=== PATIENT | male | born 1945 | race Hispanic/Latino ===

== ENCOUNTER 2019-09-15 22:18 | Inpatient (IN) | payer BC, MEDICARE ==
[~2019-09-15] VITALS: Ht 172.7 cm; Wt 59.5 kg
[~2019-09-15 22:18] MED LIST: GLUCOTROL XL5 MG PO; GLYBURIDE-METF1 EACH PO; LISINOPRIL10 MG PO; NORVASC5 MG PO
[2019-09-15] MEDS ORDERED: SODIUM CHLORIDE 0.9% 1000ML 1,000 ML IV STA ×2 (22:22)
[2019-09-15] MEDS: LORAZEPAM INJ 2 MG/ML VIAL IV ONE (22:30)
[2019-09-15] MEDS ORDERED: LORAZEPAM INJ 2 MG/ML VIAL ONE (22:32)
[2019-09-15 22:59] LABS: BASOPHILS % 0.1 % (0.0-1.0); HEMATOCRIT 29.4 % (38.2-49.6); HEMOGLOBIN 10.2 g/dL (14.0-18.0); LYMPHOCYTES # (AUTO) 0.6 (1.0-3.2); LYMPHOCYTES % 4.9 % (18.0-39.1); MEAN CORPUSCULAR HEMOGLOBIN 32.1 pg (28-32); MEAN CORPUSCULAR HGB CONC 34.7 g/dL (31-35); MEAN CORPUSCULAR VOLUME 92.5 fL (81-99); MONOCYTES # (AUTO) 0.4 (0.2-0.8); MONOCYTES % 3.1 % (4.4-11.3); NEUTROPHILS # (AUTO) 10.4 (2.1-6.9); NEUTROPHILS % 91.5 % (38.7-80.0); PLATELET COUNT 178 x10e3/uL (140-360); RED BLOOD COUNT 3.18 x10e6/uL (4.3-5.7); RED CELL DISTRIBUTION WIDTH 12.3 % (11.7-14.4)
[2019-09-15] MEDS ORDERED: POTASSIUM CHLORIDE 20MEQ/100ML 200 ML IV PRN (23:00)
[2019-09-15] MEDS: DEXTROSE 5%/0.45% SOD CHL 1,000 ML IV SCH (23:00)
[2019-09-15] MEDS ORDERED: MAGNESIUM SULF 1GRAM/DEXTROSE 100 ML IV PRN (23:00)
[2019-09-15] MEDS ORDERED: INSULIN REGULAR, HUMAN 3ML VL 100 UNIT in SODIUM CHLORIDE 0.9% 100 ML 99 ML IV SCH ×2 (23:00)
[2019-09-15] MEDS ORDERED: POTASSIUM CHLORIDE 20MEQ/100ML 100 ML IV PRN (23:00)
[2019-09-15 23:01] LABS: ABG HCO3 19 mmol/L (23-28); ABG PCO2 34 mmHg (41-51); ABG PH 7.36 (7.31-7.41); ABG PO2 107 mmHg (80-105)
[2019-09-15] MEDS ORDERED: SODIUM CHLORIDE 0.9% 100 ML ONE (23:11)
[2019-09-15] MEDS ORDERED: INSULIN REGULAR, HUMAN 100 UNIT/1 ML 3ML VIAL ONE (23:12)
[2019-09-15 23:20] LABS: ALANINE AMINOTRANSFERASE 12 IU/L (0-55); ALBUMIN 3.4 g/dL (3.5-5.0); ALBUMIN/GLOBULIN RATIO 1.1 (0.8-2.0); ALKALINE PHOSPHATASE 134 IU/L (40-150); BLOOD UREA NITROGEN 29 mg/dL (7-26); BUN/CREATININE RATIO 10 (6-25); CALCIUM 8.9 mg/dL (8.4-10.2); CARBON DIOXIDE 21 mmol/L (22-29); CHLORIDE 93 mmol/L (98-107); CREATINE KINASE 261 IU/L (30-200); CREATININE, SERUM 2.78 mg/dL (0.72-1.25); EST GLOMERULAR FILTRATION RATE 23 ML/MIN (60-); SODIUM 129 mmol/L (136-145)
--- NOTE | 2019-09-15 23:31 | Diagnostic Imaging Report ---
Exam: Head CT without contrast History: Trauma, fall Comparison studies: None Technique: Axial images were obtained from the skull base to the vertex. Coronal and sagittal images reconstructed from the axial data. Dose modulation, iterative reconstruction, and/or weight based adjustment of the mA/kV was utilized to reduce the radiation dose to as low as reasonably achievable. Radiation dose: Total DLP: 1112 mGy*cm. Estimated effective dose: DLP x 0.015 Intravenous contrast: None Findings: Scalp: Left frontal scalp swelling. Bones: No fractures, blastic or lytic lesions. Brain sulci: Mildly prominent. Ventricles: Mild compensatory dilatation. No hydrocephalus. Extra-axial spaces: No masses, no fluid collection. Parenchyma: No mass, acute hemorrhage or acute cortical vascular insults. Subtle hypodensities in the periventricular supratentorial white matter are nonspecific but most compatible with chronic small vessel ischemic changes. Sellar/suprasellar region: No abnormalities. Craniocervical junction: Patent foramen magnum. No Chiari one malformation. Incidental findings: Bilateral lens replacements related to previous cataract surgery. Atherosclerotic calcifications in the carotid siphons and intradural vertebral arteries. IMPRESSION: 1. Left frontal scalp swelling. No fracture. 2. No acute intracranial abnormalities. 3. Mild generalized parenchymal volume loss. 4. Mild chronic microvascular ischemic changes. Signed by: Dr. Maikel Mai M.D. on 09/15/2019 11:28 PM
[2019-09-15 23:34] LABS: GLUCOSE > 800 mg/dL (74-118)
--- NOTE | 2019-09-15 23:36 | Diagnostic Imaging Report ---
History: Trauma, fall Comparison studies: None Technique: Axial images were obtained through the cervical region.. Coronal and sagittal images reconstructed from the axial data.. Intravenous contrast: None Findings: Fractures: None. Soft tissue injuries: No gross acute abnormalities. Atlantoaxial articulation: Intact. Alignment: Normal cervical lordosis. No subluxations. Cervicomedullary junction: No abnormalities. The foramen magnum is patent. Vertebrae: No fractures, infection or neoplasm. Degenerative changes: Moderately degenerated C5-C6 disc and mildly degenerated C6-C7 disc with loss of disc height. No significant canal or foraminal stenosis. Multilevel facet arthrosis. Incidental findings: Dense calcified plaque in the carotid bulbs bilaterally. Additional calcified atherosclerosis in the intradural vertebral arteries and near the origin of the left vertebral artery. IMPRESSION: 1. No cervical spine fracture or subluxation. 2. Ligament, spinal cord and or vascular abnormalities cannot be excluded on the basis of this examination Signed by: Dr. Maikel Mai M.D. on 09/15/2019 11:33 PM
[2019-09-16] VITALS (23 sets, daily range): BP systolic 93–141; BP diastolic 53–78
--- OUTSIDE RECORDS SUMMARY | 2019-09-16 | XMS REPORT ---
Author Author [facility] Address Unknown Phone Unavailable Care Team Providers Care Gate Technician Name Role Phone YAN AGUILAR Unavailable Unavailable Problems This patient has no known problems. Allergies, Adverse Reactions, Alerts This patient has no known allergies or adverse reactions. Medications This patient has no known medications. Results Test Description Test Time Test Comments Text Results Atomic Results Result Comments CT CERVICAL SPINE WO 2019-09-15 23:28:00 [place] [address] Patient Name: CAPO ROCHA JR MR #: [id number] : 1945 Age/Sex: 73/M Req #: [id number] Adm Physician: Ordered by: YAN AGUILAR DO Report #: [id number] Location: ER Room/Bed: Procedure: [id number] CT/CT CERVICAL SPINE WO Exam Date: 09/15/19 Exam Time: 2245 REPORT STATUS: Signed History: Trauma, fall Comparison studies: None Technique: Axial images were obtained through the cervical region.. Coronal and sagittal images reconstructed from the axial data.. Intravenous contrast: None Findings: Fractures: None. Soft tissue injuries: No gross acute abnormalities. Atlantoaxial articulation: Intact. Alignment: Normal cervical lordosis. No subluxations. Cervicomedullary junction: No abnormalitie s. The foramen magnum is patent. Vertebrae: No fractures, infection or neoplasm. Degenerative changes: Moderately degenerated C5-C6 disc and mildly degenerated C6-C7 disc with loss of disc height. No significant canal or foraminal stenosis. Multilevel facet arthrosis. Incidental findings: Dense calcified plaque in the carotid bulbs bilaterally. Additional calcified atherosclerosis in the intradural vertebral arteries and near the origin of the left vertebral artery. IMPRESSION: 1. No cervical spine fracture or subluxation. 2. Ligament, spinal cord and or vascular abnormalities cannot be excluded on the basis of this examination Signed by: Dr. Tammie Mai M.D. on 09/15/2019 11:33 PM Dictated By: TAMMIE MAI MD 32 Transcribed By: CAT on 09/15/192332 COPY TO: YAN AGUILAR DO CT BRAIN WO 2019-09-15 23:23:00 [place] [address] Patient Name: CAPO ROCHA JR MR #: [id number] : 1945 Age/Sex: 73/M Req #: [id number] Adm Physician: Ordered by: YAN AGUILAR DO Report #: [id number] Location: ER Room/Bed: Procedure: [id number] CT/CT BRAIN WO Exam Date: 09/15/19 Exam Time: 2244 REPORT STATUS: Signed Exam: Head CT without contrast History: Trauma, fall Comparison studies: None Technique: Axial images were obtained from the skull base to the vertex. Coronal and sagittal images reconstructed from the axial data. Dose modulation, iterative reconstruction, and/or weight based adjustment of the mA/kV was utilized to reduce the radiation dose to as low as reasonably achievable. Radiation dose: Total DLP: 1112 mGy*cm. Estimated effective dose: DLP x 0.015 Intravenous contrast: None Findings: Scalp: Left frontal scalp swelling. Bones: No fractures, blastic or lytic lesions. Brain sulci: Mildly prominent. Ventricles: Mild compensatory dilatation. No hydrocephalus. Extra-axial spaces: No masses, no fluid collection. Parenchyma: No mass, acute hemorrhage or acute cortical vascular insults. Subtle hypodensities in the periventricular supratentorial white matter are nonspecific but most compatible with chronic small vessel ischemic changes. Sellar/suprasellar region: No abnormalitie s. Craniocervical junction: Patent foramen magnum. No Chiari one malformation. Incidental findings: Bilateral lens replacements related to previous cataract surgery. Atherosclerotic calcifications in the carotid siphons and intradural vertebral arteries. IMPRESSION: 1. Left frontal scalp swelling. No fracture. 2. No acute intracranial abnormalities. 3. Mild generalized parenchymal volume loss. 4. Mild chronic microvascular ischemic changes. Signed by: Dr. Tammie Mai M.D. on 09/15/2019 11:28 PM Dictated By: TAMMIE MAI MD [id number] Transcribed By: CAT on 09/15/196 COPY TO: YAN AGUILAR DO
[2019-09-16] MEDS: SODIUM CHLORIDE 0.9% 1000ML 1,000 ML IV SCH ×2 (01:00→06:40)
[2019-09-16 01:22] LABS: CREATINE KINASE MB 8.1 ng/mL (0-5.0)
[2019-09-16 02:13] LABS: ANION GAP 15.4 mmol/L (8-16); CALCIUM 8.1 mg/dL (8.4-10.2); CREATININE, SERUM 2.41 mg/dL (0.72-1.25); POTASSIUM 4.4 mmol/L (3.5-5.1)
--- NOTE | 2019-09-16 03:00 | NUR ---
Received to 191 from ER. Placed on EKG, pulse ox & NBP for monitoring. Admission history, vaccine screening & Initial admission assessment completed. See interventions. Insulin drip infusing @ 6 units/hr & NS @ 150ml/hr.
--- NOTE | 2019-09-16 03:45 | NUR ---
Family at bedside. Questions answered. Blood drawn for BMP and taken to lab.
[2019-09-16 04:37] LABS: ANION GAP 15.6 mmol/L (8-16); CALCIUM 8.3 mg/dL (8.4-10.2); CREATININE, SERUM 1.98 mg/dL (0.72-1.25); POTASSIUM 3.6 mmol/L (3.5-5.1)
[2019-09-16] MEDS: DEXTROSE 5%/0.45% SOD CHL 1,000 ML IV SCH ×2 (05:00→16:54)
--- NOTE | 2019-09-16 05:58 | NUR ---
Diaper changed and brenda care done.
[2019-09-16] MEDS: LORAZEPAM INJ 2 MG/ML VIAL IV ONE (06:14)
--- NOTE | 2019-09-16 06:23 | NUR ---
Increased D5 1/2NS to 200ml/hr and restarted Insulin @ 5 units/hr.
[2019-09-16 06:52] LABS: ANION GAP 14.4 mmol/L (8-16); CALCIUM 8.7 mg/dL (8.4-10.2); CREATININE, SERUM 2.04 mg/dL (0.72-1.25); POTASSIUM 3.4 mmol/L (3.5-5.1)
[2019-09-16 08:18] LABS: ANION GAP 14.8 mmol/L (8-16); CALCIUM 8.6 mg/dL (8.4-10.2); CREATININE, SERUM 2.07 mg/dL (0.72-1.25); POTASSIUM 3.8 mmol/L (3.5-5.1)
--- NOTE | 2019-09-16 09:14 | NUR ---
H&P cc: fall and passing out HPI: 73yoM, PCP [facility], fell and passed out on 2 occasions at home. THere was some head trauma to left frontal scalp. Pt found by down; He was confused from time to time, and had markedly elevated blood glucose. PMH: DM2, HTN, Presyncope PSHx: cataract Allergies; see emr FH/SH; ; no illicits Meds; see MAR ROS: unobtainable v/s revd PE tired appearing; bitemporal wasting left periorbital erythema ns1s2 mod bs soft nt nd no e/t skin dry flat affect confused [place] labs/meds revd A/P: 73yoM NSTEMI Uncontrolled DM/Hyperglycemia Syncope Acute Metabolic encephalopathy Elderly fall CKD3 due to DM2 Underweight Low BMI BMI 18.4 Normocytic anemia PLAN Start heparin gtt; check echo; cardio eval CHeck Osmoles; Did no have DKA, likely HHS; endocrinology eval cct>35mins
[2019-09-16] MEDS: HEPARIN 25,000 UNIT/D5W 250ML 250 ML IV SCH (09:42)
[2019-09-16 09:53] LABS: HEMATOCRIT 25.3 % (38.2-49.6); HEMOGLOBIN 8.8 g/dL (14.0-18.0); MEAN CORPUSCULAR HEMOGLOBIN 32.1 pg (28-32); MEAN CORPUSCULAR HGB CONC 34.8 g/dL (31-35); MEAN CORPUSCULAR VOLUME 92.3 fL (81-99); PLATELET COUNT 132 x10e3/uL (140-360); RED BLOOD COUNT 2.74 x10e6/uL (4.3-5.7); RED CELL DISTRIBUTION WIDTH 12.5 % (11.7-14.4)
[2019-09-16] MEDS ORDERED: HEPARIN SOD (PORCINE) 5,000 UNIT/ML VIAL IV ONE (10:00)
[2019-09-16 10:05] LABS: CHOL/HDL RATIO 2.4 (3.9-4.7)
--- NOTE | 2019-09-16 10:30 | NUR ---
ALL PHYSICIAN CONSULTS CALLED AT THIS TIME
[2019-09-16] MEDS ORDERED: INSULIN REGULAR, HUMAN 3ML VL 300 UNIT in SODIUM CHLORIDE 0.45% 100 ML 300 ML IV SCH ×2 (10:34)
[2019-09-16 10:38] LABS: INR 1.27; PROTHROMBIN TIME 16.5 seconds (11.9-14.5)
[2019-09-16] MEDS ORDERED: DEXTROSE 50% SYRINGE 50 ML IV PRN ×2 (10:45→14:45)
--- NOTE | 2019-09-16 10:45 | NUR ---
SPOKE TO INSTRUCTED TO START ON HIS INSULIN PROTOCOL AND DECREASE FLUIDS TO 150 CC/HR.
[2019-09-16] MEDS ORDERED: THIAMINE HCL INJ 100 MG/ML 2ML VIAL IV ONE (11:30)
[2019-09-16 12:04] LABS: CLARITY,URINE CLEAR (CLEAR); COLOR,URINE YELLOW (YELLOW)
[2019-09-16 12:05] LABS: AMPHETAMINES SCREEN,URINE NEGATIVE (NEGATIVE); KETONES,URINE TRACE (NEGATIVE); LEUKOCYTE ESTERASE ,URINE NEGATIVE (NEGATIVE); NITRITE,URINE NEGATIVE (NEGATIVE); PHENCYCLIDINE SCREEN,URINE NEGATIVE (NEGATIVE); PROTEIN,URINE DIPSTICK 1+ (NEGATIVE)
[2019-09-16 12:06] LABS: BENZODIAZEPINES SCREEN,URINE POSITIVE (NEGATIVE); BILIRUBIN,URINE NEGATIVE (NEGATIVE); URINE UROBILINOGEN 0.2 mg/dL (0.2 - 1)
[2019-09-16 12:10] LABS: RBC,URINE 0-5 /HPF (0-5); WBC,URINE (MAN) 0-5 /HPF (0-5)
[2019-09-16 12:11] LABS: AMORPHOUS SEDIMENT,URINE FEW (FEW); BACTERIA,URINE FEW /HPF; EPITHELIAL CELLS,URINE RARE /LPF
--- NOTE | 2019-09-16 12:12 | Diagnostic Imaging Report ---
EXAMINATION: CHEST SINGLE (PORTABLE) COMPARISON: None INDICATION: ^screening, sepsis ^[id number] ^[id number] DISCUSSION: Frontal view of the chest obtained at 1140 hours. HEART AND MEDIASTINUM: The cardiomediastinal silhouette is unremarkable. LINES: None. LUNGS: The lungs are diffusely hyperinflated suggestive of small airways disease. Pulmonary veins are mildly prominent. Right infrahilar airspace opacity may represent atelectasis or infiltrate. PLEURA: No pleural effusion or pneumothorax. BONES AND SOFT TISSUES: No focal osseous lesion. The soft tissues are normal. IMPRESSION: Mild prostate pulmonary veins. Pulmonary hyperinflation suggestive of small airways disease. Right infrahilar airspace opacity, either atelectasis or infiltrate. Signed by: Dr. Ragini Russell MD on 09/16/2019 12:09 PM
[2019-09-16] MEDS ORDERED: INSULIN REGULAR, HUMAN 3ML VL 100 UNIT in SODIUM CHLORIDE 0.9% 99 ML IV SCH ×4 (15:00→15:15)
[2019-09-16] MEDS: FAMOTIDINE 20 MG/2 ML VIAL IV SCH (16:08)
--- NOTE | 2019-09-16 17:19 | Consultation ---
DATE OF CONSULTATION: 09/16/2019 Pulmonary Critical Care Consult REASON FOR REFERRAL: Critical hyperglycemia. HISTORY OF PRESENT ILLNESS: Mr. Osei is a pleasant 73-year-old gentleman with critical sequela of hyperglycemia. The patient presents to emergency room on September 26, 2019. The patient had decreased mental status and known noncompliance with diabetes medications. He was disoriented recently and decreased responsiveness and the patient was last noted two days ago to be at his normal level. The glucose meter reading was high as per family, therefore he was brought to the emergency room. When he comes to the emergency room, it was noted he has left frontal scalp swelling, but no jeannie fracture on another brain CT nor cervical spine CT. When blood work came back, it was noted that his glucose was greater than 800 in our system as well. Initial sodium was 129 with 21 bicarbonate, 29 BUN, creatinine 2.8. The patient had troponin to 1.99 as well. At this point, he was placed on insulin drip as noted admitted for aggressive treatment of predominant hyperosmolar hyperglycemic state. PAST MEDICAL HISTORY: Diabetes, hypertension, CKD. MEDICATIONS: Medication list reviewed per the chart record. ALLERGIES: REVIEWED PER THE CHART RECORD, NO KNOWN DRUG ALLERGIES. SOCIAL HISTORY: Unclear from the patient, but notes suggest no smoking, no alcohol, no drug use. FAMILY HISTORY: Noncontributory. REVIEW OF SYSTEMS: Cannot get reliably, as he is slightly altered. OBJECTIVE: VITAL SIGNS: Currently afebrile, vital signs noted, reviewed per the chart record. GENERAL: In no acute distress, alert and calm, but he has hard time to collect his thoughts. HEENT: Normocephalic, atraumatic. NECK: Supple. Throat midline. LUNGS: Bilateral air entry, mostly clear. CARDIOVASCULAR: S1, S2. No murmurs, rubs, or gallops. ABDOMEN: Soft and nontender. EXTREMITIES: No clubbing no cyanosis. There is no edema. INTEGUMENT: No rash or purpura. LABORATORY DATA: Other labs reviewed per the chart record. A 7.3//19. IMPRESSION AND PLAN: 1. Suggested nonketotic hyperosmolar hyperglycemic state, uncontrolled diabetes. 2. History of treatment of nonadherence. 3. Chronic kidney disease. 4. History of hypertension. 5. Encephalopathy, not otherwise specified. 6. Left periorbital contusion without fracture. 7. Anemia, moderate. 8. Thrombocytopenia, mild. 9. Lactic acidosis, not otherwise specified. 10. Acute myocardial infarction with troponins of 5.7. Continue insulin drip. Continue some additional IV fluids. Cardiology has been consulted and the patient is on heparin drip. We will give vitamins initially until we know the ideology of the patient's altered mentation. Urinary drug screen and UA will be sent off. Thank you very much, Dr. Carpenter for allowing me a chance to participate in the care of Mr. Osei. Please call for questions. MD MARSHALL Pink/MUMTAZ /[id number]
[2019-09-16 17:53] LABS: ANION GAP 13.1 mmol/L (8-16); CALCIUM 8.1 mg/dL (8.4-10.2); CREATININE, SERUM 1.95 mg/dL (0.72-1.25); POTASSIUM 4.1 mmol/L (3.5-5.1)
[2019-09-16 18:34] LABS: FREE T4 (FREE THYROXINE) 0.94 ng/dL (0.8-1.8); THYROID STIMULATING HORMONE 0.505 uIU/mL (0.350-4.940)
--- NOTE | 2019-09-16 19:00 | NUR ---
Report received. Assumed care. Assessment done. See interventions. IV NS @ 125ml/hr. On room air with sats 94-97% Addendum: 09/16/19 at 2010 by Trish Allen RN NS @ 120ml/hr, Insulin drip @ 1 unit/hr, & Heparin @ 6 units/hr.
--- NOTE | 2019-09-16 19:25 | Consultation ---
DATE OF CONSULTATION: 09/16/2019 Cardiology consultation. REASON FOR CONSULTATION: Syncope, elevated troponin. HISTORY OF PRESENT ILLNESS: This is a 73-year-old man with a history of possible diabetes, who presented to the emergency department with altered mental status. The patient has mild confusion. He cannot provide me the exact details of his presenting symptoms or his past medical history. Most of the history is taken from family at bedside and the medical record. Evidently, the patient has had two syncopal events over the last few days. One with trauma to his left eye. The patient states that he develops severe shortness of breath with left hand cramping sensation and then loses consciousness. He denies any chest pain or pressure. The patient denies any prior cardiac workup or history of myocardial infarction, congestive heart failure, valvular abnormalities. The patient denies any palpitations with these episodes. Evidently, he was found to have severely-elevated blood glucose of greater than 800 when he arrived to the hospital. Troponin's were noted to be elevated at 1.9 initially and it is currently 5.7. REVIEW OF SYSTEMS: Unable to be obtained due to confusion. PAST MEDICAL HISTORY: Diabetes. PAST FAMILY HISTORY: Noncontributory. SOCIAL HISTORY: No illicit drug, alcohol, or tobacco use. ALLERGIES: NO KNOWN DRUG ALLERGIES. MEDICATIONS: See medications reconciliation form. PHYSICAL EXAMINATION: VITAL SIGNS: Temperature is 98.6, heart rate 65, respirations are 14, blood pressure is 126/74, oxygen saturation 100% on room air. GENERAL: He is an elderly man, lying comfortably in bed, no apparent distress, and alert. HEAD: Normocephalic. There is trauma to the left periorbital region. NECK: No JVD. No bruits. CARDIOVASCULAR: Regular rate and rhythm. LUNGS: Clear to auscultation. ABDOMEN: Soft, nontender, nondistended. EXTREMITIES: No clubbing, cyanosis, or edema. VASCULAR: 2+ pulses. SKIN: Warm, dry, intact. NEUROLOGIC: No focal deficits noted on gross examination. LABORATORY DATA: Reveal a creatinine of 2.7. Lactic acid 2.4. Troponin is 5.7. IMAGING: A 12-lead electrocardiogram showed normal sinus rhythm with nonspecific ST-T wave abnormalities. TELEMETRY: Monitoring revealed normal sinus rhythm with premature ventricular complexes. IMPRESSION: 1. Hyperglycemia. 2. Diabetes mellitus. 3. Tpl-PP-iocnqjblx myocardial infarction. 4. Acute kidney injury. 5. Syncope. 6. Altered mental status. RECOMMENDATIONS: Continue intravenous heparin and aspirin. Continue diabetes treatment per primary team. We will check a 2D echocardiogram. Maintain telemetry monitoring. The patient will need cardiac catheterization once he is more stable. Brock Barcenas DO BM/MODL /[id number]
--- NOTE | 2019-09-16 22:20 | Consultation ---
DATE OF CONSULTATION: 09/15/2019 Endocrine Consultation This is a patient of Dr. Jayden Naranjo. Thank you very much for referring this patient. HISTORY OF PRESENT ILLNESS: This is a 73-year-old gentleman who was referred to me for evaluation of uncontrolled diabetes mellitus and diabetic ketoacidosis. The patient reportedly is a known diabetic for last several years. He does not take any routine medications for it and is trying some homeopathic medicines on the line. At this time, he came to the hospital with history of dehydration, nausea, vomiting, and some chest discomfort. On further evaluation, his blood sugar was found to be more than 800. His anion gap was 20. His sodium was 129 and potassium was 5.0. His troponin levels are also elevated at 1.9. The patient was started on IV fluids and insulin drip. Symptomatically, he is doing better now. No history of coronary artery disease in the past. He has history of hypertension. PHYSICAL EXAMINATION: GENERAL: Today, the patient is alert, awake, little bit apprehensive. He is thin built. He has decreased muscle mass. VITAL SIGNS: His heart rate is around 67, blood pressure is 110/70 mmHg. HEENT: Essentially unremarkable. Thyroid is palpable. Clinically, he is near euthyroid. CHEST: Bilateral vesicular breathing. No rales. CARDIOVASCULAR: First and second heart sounds. There are no third or fourth heart sounds. There is ejection systolic murmur grade 2/6. NEUROLOGIC: The patient has evidence of diabetic sensory neuropathy in both lower extremities. CLINICAL IMPRESSION: Diabetes mellitus type 2, uncontrolled with complications; noncompliance of medications, diabetic ketoacidosis, chest pain, rule out myocardial infarction; increased troponin levels, and acute on chronic renal failure. PLAN: At this time, continue IV fluids and insulin drip. Monitor his blood sugars closely. We will do hemoglobin A1c and thyroid function tests. Thanks for referring this patient. I will be following this patient with you. MD VÍCTOR Ordaz/JOHANL /[id number]
--- NOTE | 2019-09-16 22:59 | NUR ---
O2 sat 89%. Placed on 2L NC. O2 sat then went up to 93%. Addendum: 09/17/19 at 0040 by Trish Allen RN Error wrong chart.
--- NOTE | 2019-09-16 23:30 | NUR ---
PTT 50.6. No change in Heparin drip.
[2019-09-17] VITALS (27 sets, daily range): BP systolic 100–149; BP diastolic 53–79
[2019-09-17 00:05] LABS: ANION GAP 12.1 mmol/L (8-16); CALCIUM 8.2 mg/dL (8.4-10.2); CREATININE, SERUM 1.97 mg/dL (0.72-1.25); POTASSIUM 4.1 mmol/L (3.5-5.1)
--- NOTE | 2019-09-17 00:41 | Consultation ---
DATE OF CONSULTATION: 09/16/2019 Nephrology Consultation REASON FOR CONSULTATION: Renal insufficiency. HISTORY OF PRESENT ILLNESS: The patient is a 73-year-old white male with long-standing history of diabetes mellitus, who was apparently found unconscious at home by and brought to medical attention. His blood sugar was found to be in the 800 range. He was given treatment for hyperosmolar coma, which included aggressive IV hydration and later IV insulin drip. He is currently admitted to the ICU and is alert and appears oriented. Apparently, he was also seen by sheet metal mechanic for elevated troponin and he is on an IV heparin drip. His labs showed a creatinine of 2.07, BUN 27, bicarb of 11, potassium initially of 3.4 and then up to 3.8 with replacement, sodium of 140, and glucose currently is 80. The patient is not aware of any chronic kidney disease. In fact, has not seen a physician recently. Denies history of kidney stones or intake of NSAID. Denies any nausea, vomiting, diarrhea, abdominal or flank pain, dysuria, or gross hematuria. No shortness of breath. PAST MEDICAL HISTORY: As above. Not known if he is hypertensive. CURRENT MEDICATIONS: Reviewed from DEC. ALLERGIES: NONE KNOWN. SOCIAL HISTORY: Lives with his . No alcohol or tobacco use. REVIEW OF SYSTEMS: Negative except as noted in HPI above. PHYSICAL EXAMINATION: GENERAL: The patient appears comfortable, lying supine in bed. VITAL SIGNS: Blood pressure 126/67, respiratory rate 13 per minute, he is afebrile, pulse 78 per minute and regular, and oxygen saturation is 100% on room air. SKIN: Somewhat decrease in turgor. No rash or other lesions. HEENT: Normocephalic and atraumatic head. No icterus. Oral mucosa unremarkable. NECK: Supple without jugular venous distention. CHEST: Clear to auscultation bilaterally. CARDIOVASCULAR: Normal S1, S2 without murmur, rub, or gallop. ABDOMEN: Soft, depressible, nontender, and nondistended. EXTREMITIES: Without pitting edema or cyanosis. NEUROLOGIC: The patient is alert and appears oriented. No obvious focal deficit. IMAGING: Chest x-ray, report shows no pleural effusion with a right infrahilar airspace opacity, either atelectasis or infiltrate. LABORATORY DATA: Serum chemistries as noted above in HPI. CBC shows hemoglobin of 8.8, normal white count, and platelets 132,000. Urinalysis shows specific gravity 1.020, 1+ protein, negative microscopy. IMPRESSION: Renal insufficiency, duration or etiology not known at this time. He does have a long history of diabetes mellitus, but has only 1+ protein on urinalysis. This is in the setting of dehydration from the hyperglycemia that he presented with. No known history of hypertension as reported by the patient. No NSAID intake or recent IV iodinated dye exposure. No apparent recent hypotension. RECOMMENDATIONS: Continue treatment of the hyperosmolar condition with IV hydration. He is already taking orally. Avoid all known nephrotoxins such as NSAIDs, aminoglycoside antibiotics, and iodinated contrast as possible. His potassium has already been replaced into a normal level. At present, he only appears to have mild metabolic acidosis. Repeat BMP tomorrow morning. If BUN, creatinine are still elevated, we will obtain a renal ultrasound to rule out obstruction. We will follow the patient and suggest as indicated. Thank you for the opportunity to participate in his care. MD VIGNESH Martinez/MUMTAZ /[id number]
[2019-09-17] MEDS: DEXTROSE 5%/0.45% SOD CHL 1,000 ML IV SCH ×3 (02:18→19:49)
[2019-09-17 05:15] LABS: BASOPHILS % 0.4 % (0.0-1.0); EOSINOPHILS # (AUTO) 0.2 (0.0-0.4); EOSINOPHILS % 2.3 % (0.0-6.0); HEMATOCRIT 22.9 % (38.2-49.6); HEMOGLOBIN 7.8 g/dL (14.0-18.0); LYMPHOCYTES # (AUTO) 2.2 (1.0-3.2); LYMPHOCYTES % 29.8 % (18.0-39.1); MEAN CORPUSCULAR HEMOGLOBIN 31.7 pg (28-32); MEAN CORPUSCULAR HGB CONC 34.1 g/dL (31-35); MEAN CORPUSCULAR VOLUME 93.1 fL (81-99); MONOCYTES # (AUTO) 0.5 (0.2-0.8); MONOCYTES % 6.4 % (4.4-11.3); NEUTROPHILS # (AUTO) 4.6 (2.1-6.9); NEUTROPHILS % 60.8 % (38.7-80.0); PLATELET COUNT 123 x10e3/uL (140-360); RED BLOOD COUNT 2.46 x10e6/uL (4.3-5.7); RED CELL DISTRIBUTION WIDTH 12.8 % (11.7-14.4)
--- NOTE | 2019-09-17 07:31 | NUR ---
IM- progress note O/N no events ROS: unobtainable v/s revd PE tired appearing; bitemporal wasting left periorbital erythema ns1s2 mod bs soft nt nd no e/t skin dry flat affect confused [place] labs/meds revd A/P: 73yoM NSTEMI Uncontrolled DM/Hyperglycemia Syncope Acute Metabolic encephalopathy Elderly fall CKD3 due to DM2 Underweight Low BMI BMI 18.4 Normocytic anemia PLAN Start heparin gtt; check echo; cardio eval CHeck Osmoles; Did no have DKA, likely HHS; endocrinology eval cct>35mins 09/17 Hba1c/LDL 14.7/73 09/18 Rolf Carpenter MD, PhD.
[2019-09-17] MEDS: MULTIVITAMINS/MINERALS TAB PO SCH (08:24)
[2019-09-17] MEDS: FAMOTIDINE 20 MG/2 ML VIAL IV SCH ×2 (08:24→16:49)
[2019-09-17] MEDS: HEPARIN 25,000 UNIT/D5W 250ML 250 ML IV SCH (10:00)
--- NOTE | 2019-09-17 11:14 | Progress Note ---
DATE: 09/17/2019 Cardiology Progress Note SUBJECTIVE: The patient denies chest pain or shortness of breath. He remains on insulin drip. OBJECTIVE: VITAL SIGNS: Temperature 97.9 degrees, pulse 77, respiratory rate 20, blood pressure 130/65, oxygen saturation 100% on room air. GENERAL: Awake, alert, in no acute distress. LUNGS: Clear to auscultation bilaterally. No wheezes or crackles. CARDIOVASCULAR: Normal rate, regular rhythm. No murmur. Normal S1, S2. ABDOMEN: Soft, nontender. EXTREMITIES: No edema. CARDIAC MEDICATIONS: Heparin drip. Insulin drip. LABORATORY DATA: WBC 7.52, hemoglobin 7.8, hematocrit 22.9, platelets 123. Sodium 137, potassium 4.1, chloride 110, CO2 of 19, BUN 24, creatinine 1.97. TELEMETRY: Normal sinus rhythm. IMPRESSION: 1. Nen-HY-lbyyjadnx myocardial infarction. 2. Hyperglycemia. 3. Diabetes mellitus. 4. Acute kidney injury. 5. Syncope. 6. Altered mental status. RECOMMENDATIONS: Continue heparin drip. The patient will need cardiac catheterization once off insulin drip and renal function has stabilized. In the meantime, monitor patient on telemetry. Add aspirin and statin. Echocardiogram has been ordered. We will review images once available. Thank you for this consult. We will continue to follow. Ericka Zaldivar MD ABS/MODL /[id number]
--- NOTE | 2019-09-17 19:37 | NUR ---
Nutrition Intervention Note RD Recommendation(s) for Physician: -Glucerna BID for added nutrition -Recommend diabetic diet Plan of Care: RD following, monitoring for tolerance and adequacy Nutrition reason for involvement: MST RD Assessment (09/17/19) Pt is a 73 year old male admitted with hyperosmolar hyperglycemic coma due to diabetes without ketoacidosis. Pt stated he has a good appetite and has been eating most of his meals. Consumption of 50-100% of meals documented in chart. Pt reported he used to weigh 150-160 lbs but was unsure of when he last weighed this amount. Pt has weights ranging from 121-127 lbs during this admission. No N/V/D/C reported and no chewing/swallowing issues. Pt was interested in nutrition supplement. Principal Problems/Diagnoses: hyperosmolar hyperglycemic coma due to diabetes without ketoacidosis. PMH: diabetes, HTN, presyncope I/O: 610/1150 GI: flat, soft, nontender abdomen Skin: no pressure ulcers Labs: HgbA1c 14, Creat 1.97, Ca 8.2 Meds: multivitamin with minerals, pepcid, heparin, KCl, insulin glargine, atorvastatin, insulin regular, magnesium sulfate, potassium chloride Ht: 68 inches Wt: 127 lbs BMI: 19.3 kg/m2 IBW: 154 lbs Malnutrition Evaluation (09/17/19) The patient does not meet criteria for a specified degree of malnutrition at this time. Will re-evaluate at follow-up as appropriate. Energy intake: Adequate PO intake reported Weight loss: Unable to assess Fat loss: no loss identified Muscle loss: Moderate lower extremities, mild temporal muscle depletion Supporting Evidence: Fluid accumulation: no accumulation identified per MD note Functional Status: unable to evaluate Nutrition Prescription (Diet Order): Cardiac Diet Estimated Nutritional Needs: 6050-1808 calories/day (25-35 kcal/kg CBW) 58-87 g protein/day (1.0-1.5 g pro/kg CBW) Diet Adequacy: Meeting calorie needs, Meeting protein needs Tolerance: Tolerating PO Diet Education Needs Assessment: Pt was interested in diet education Learner(s): pt Time spent: 5-10 minutes Barriers: No barriers identified. Cultural/Language Modifications: No cultural/language modifications noted. Pt and speak [place]. Readiness: Pt eager to learn. Method: explanation/discussion, handout Topic: Diabetic diet Understanding/Compliance: Pt verbalized understanding Nutrition Care Level: low PES: Altered nutrition related lab values related to endocrine dysfunction as evidenced by Hgb A1c 14%. Goal: Patient will meet 75-100% of estimated needs by follow up Progress: N/A Interventions: carbohydrate-modified diet, Commercial beverage, Recommended Modifications Monitoring/Evaluation: -Total energy intake, Total protein intake, Modified diet, Liquid supplement, Weight change Signed: Miriam De Lso Santos RD, LD
[2019-09-17] MEDS: ATORVASTATIN 10 MG TAB PO SCH (20:33)
[2019-09-17] MEDS ORDERED: INSULIN GLARGINE 100 UNITS/ML VIAL SQ SCH (21:00)
[2019-09-17 21:05] LABS: ALBUMIN 2.7 g/dL (3.5-5.0); ALBUMIN/GLOBULIN RATIO 1.2 (0.8-2.0); ANION GAP 11.5 mmol/L (8-16); CALCIUM 7.9 mg/dL (8.4-10.2); CREATININE, SERUM 2.14 mg/dL (0.72-1.25); MAGNESIUM 1.9 MG/DL (1.3-2.1); POTASSIUM 4.5 mmol/L (3.5-5.1)
[2019-09-18] VITALS (23 sets, daily range): BP systolic 95–168; BP diastolic 47–107
--- NOTE | 2019-09-18 00:26 | NUR ---
Pulmonary Critical Care DATE 09/17/2019 SUBJECTIVE: EATING well d5 1/2 NS ivf insulin drip 3/ heparin iv REVIEW OF SYSTEMS: no emesis, no rash OBJECTIVE: VITAL SIGNS: vital signs noted, reviewed per the chart record. GENERAL: NAD, alert / calm HEENT: Normocephalic, atraumatic. NECK: Supple. Throat midline. LUNGS: Bilateral air entry, mostly clear. CARDIOVASCULAR: S1, S2. No murmurs, rubs, or gallops. ABDOMEN: Soft, nontender. EXTREMITIES: No clubbing, no cyanosis. no edema. INTEGUMENT: No rash or purpura. LABORATORY DATA: k 4.1, hco3 19, cr 1.97. 7.5 wbc, hct 23, plt 123 IMPRESSION AND PLAN: 1. nonketotic hyperosmolar hyperglycemic state, uncontrolled diabetes. 2. History of treatment of nonadherence. 3. Chronic kidney disease. 4. History of hypertension. 5. Encephalopathy, toxic/metabolic. Improved. 6. Left periorbital contusion without fracture. 7. Anemia, moderate. 8. Thrombocytopenia, mild. 9. Lactic acidosis, not otherwise specified. 10. Acute myocardial infarction Insulin drip per endocrinology Continue some additional IV fluids Cardiology to consider heart catheterization once stabilized further Give vitamins AM BMP Thank you very much, Dr. Carpenter for allowing me a chance to participate in the care of Mr. Osei. Please call for questions.
[2019-09-18] MEDS ORDERED: NITROGLYCERIN/D5W 200 MCG/ML 250 ML ONE (01:19)
[2019-09-18] MEDS: DEXTROSE 5%/0.45% SOD CHL 1,000 ML IV SCH ×2 (04:06→15:09)
[2019-09-18 05:33] LABS: ALBUMIN 2.4 g/dL (3.5-5.0); ALBUMIN/GLOBULIN RATIO 1.1 (0.8-2.0); ANION GAP 10.2 mmol/L (8-16); CALCIUM 7.8 mg/dL (8.4-10.2); POTASSIUM 4.2 mmol/L (3.5-5.1)
--- NOTE | 2019-09-18 06:47 | NUR ---
IM- progress note O/N no events ROS: unobtainable v/s revd PE tired appearing; bitemporal wasting left periorbital erythema ns1s2 mod bs soft nt nd no e/t skin dry flat affect confused [place] labs/meds revd A/P: 73yoM NSTEMI Uncontrolled DM/Hyperglycemia Syncope Acute Metabolic encephalopathy Elderly fall CKD3 due to DM2 Underweight Low BMI BMI 18.4 Normocytic anemia PLAN Start heparin gtt; check echo; cardio eval CHeck Osmoles; Did no have DKA, likely HHS; endocrinology eval cct>35mins 09/17 Hba1c/LDL 14.7/73 09/18 check H/H, Hb trending down; f/u cardio; Rolf Carpenter MD, PhD.
[2019-09-18 06:59] LABS: HEMATOCRIT 24.3 % (38.2-49.6); HEMOGLOBIN 8.4 g/dL (14.0-18.0)
[2019-09-18 08:19] LABS: CREATINE KINASE MB 3.2 ng/mL (0-5.0)
[2019-09-18] MEDS: ASPIRIN 81 MG ENTERIC COATED PO SCH (08:26)
[2019-09-18] MEDS: FAMOTIDINE 20 MG/2 ML VIAL IV SCH ×2 (08:26→16:08)
[2019-09-18] MEDS: MULTIVITAMINS/MINERALS TAB PO SCH (08:27)
--- NOTE | 2019-09-18 14:09 | Diagnostic Imaging Report ---
EXAM: US RENAL RETROPERITONEAL COMP DATE: 09/18/2019 12:00 AM INDICATION: Chronic kidney disease, rule out obstruction COMPARISON: Renal ultrasound from 07/05/2013 FINDINGS: The right kidney is partially obscured by adjacent bowel gas accurate measurements difficult. The right kidney appears grossly normal in size with cortical thickness of 1.5 cm. Cortical echogenicity is within normal limits. There is no evidence for solid renal mass, hydronephrosis, or shadowing calculi. The left kidney is normal in size measuring 9.6 x 4.4 x 3.8 centers with cortical thickness of 1.4 cm. Cortical echogenicity is within normal limits. There is no evidence of solid renal mass, hydronephrosis, or shadowing calculi. The urinary bladder is collapsed around Germain catheter. Incidentally noted is a small right pleural effusion. IMPRESSION: Unremarkable sonographic appearance of the kidneys, noting that a portion of the right kidney is partially secured by adjacent bowel gas. Incidentally noted small right pleural effusion. Signed by: Dr. Gabriel Carolina MD on 09/18/2019 2:06 PM
[2019-09-18] MEDS ORDERED: DEXTROSE 50% SYRINGE 50 ML IV PRN (15:15)
[2019-09-18] MEDS: METOPROLOL TARTRATE 25 MG TAB PO SCH (16:08)
[2019-09-18] MEDS: INSULIN REGULAR, HUMAN 100 UNIT/1 ML 3ML VIAL SQ SCH ×2 (16:25→20:40)
--- NOTE | 2019-09-18 18:44 | Progress Note ---
DATE: 09/18/2019 Cardiology Progress Note SUBJECTIVE: The patient denies chest pain or shortness of breath. OBJECTIVE: VITAL SIGNS: Temperature 97.3 degrees, pulse 80, respiratory rate 12, blood pressure 147/58, oxygen saturation 100% on room air. GENERAL: Awake, alert, in no acute distress. LUNGS: Clear to auscultation bilaterally. No wheezes or crackles. CARDIOVASCULAR: Normal rate, regular rhythm. No murmur. Normal S1, S2. ABDOMEN: Soft, nontender. EXTREMITIES: No edema. CARDIAC MEDICATIONS: Aspirin 81 mg p.o. daily, atorvastatin 10 mg p.o. at bedtime, heparin drip. LABORATORY DATA: Sodium 139, potassium 4.2, chloride 112, CO2 of 21, BUN 18, and creatinine 2. Troponin 2.7. TELEMETRY: Normal sinus rhythm. IMPRESSION: 1. Okk-RL-eooqnmxks myocardial infarction. 2. Acute systolic heart failure. 3. Hyperglycemia. 4. Diabetes mellitus. 5. Acute kidney injury. 6. Syncope. 7. Altered mental status. RECOMMENDATIONS: Continue heparin drip. The patient will need cardiac catheterization once renal function has stabilized. In the meantime, continue medical therapy. Monitor patient closely on telemetry. Continue aspirin and statin. The patient is hypertensive. Start metoprolol, which we will need to transition to metoprolol succinate once ready for discharge. Thank you for this consult. We will continue to follow. Ericka Zaldivar MD ABS/MODL /[id number]
[2019-09-18] MEDS: ATORVASTATIN 10 MG TAB PO SCH (20:40)
[2019-09-19] VITALS (26 sets, daily range): BP systolic 90–156; BP diastolic 47–97
--- NOTE | 2019-09-19 01:03 | NUR ---
Pulmonary Critical Care DATE 09/18/2019 SUBJECTIVE: eating well lucid, mild forgetfulness still insulin drip off hparin iv d5 1/2 NS IVF REVIEW OF SYSTEMS: no emesis, no rash OBJECTIVE: VITAL SIGNS: vital signs noted, reviewed per the chart record. GENERAL: NAD, alert / calm HEENT: Normocephalic, atraumatic. NECK: Supple. Throat midline. LUNGS: Bilateral air entry, mostly clear. CARDIOVASCULAR: S1, S2. No murmurs, rubs, or gallops. ABDOMEN: Soft, nontender. EXTREMITIES: No clubbing, no cyanosis. no edema. INTEGUMENT: No rash or purpura. LABORATORY DATA: per EMR, cr 2.0 IMPRESSION AND PLAN: 1. nonketotic hyperosmolar hyperglycemic state, uncontrolled diabetes. 2. Treatment nonadherence, chronic 3. Chronic kidney disease. 4. History of hypertension. 5. Encephalopathy, toxic/metabolic. Improved. 6. Left periorbital contusion without fracture. 7. Anemia, moderate. 8. Thrombocytopenia, mild. 9. Lactic acidosis, not otherwise specified. 10. Acute myocardial infarction Insulin drip dc per endocrinology SQ insulin heparin IV Cardiology to consider heart catheterization once stabilized further Give vitamins Thank you very much, Dr. Carpenter for allowing me a chance to participate in the care of Mr. Osei. Please call for questions.
[2019-09-19] MEDS: DEXTROSE 5%/0.45% SOD CHL 1,000 ML IV SCH (03:54)
[2019-09-19 05:11] LABS: BASOPHILS % 0.3 % (0.0-1.0); EOSINOPHILS # (AUTO) 0.2 (0.0-0.4); EOSINOPHILS % 2.6 % (0.0-6.0); HEMATOCRIT 23.9 % (38.2-49.6); HEMOGLOBIN 8.2 g/dL (14.0-18.0); LYMPHOCYTES # (AUTO) 1.4 (1.0-3.2); LYMPHOCYTES % 21.2 % (18.0-39.1); MEAN CORPUSCULAR HEMOGLOBIN 32.5 pg (28-32); MEAN CORPUSCULAR HGB CONC 34.3 g/dL (31-35); MEAN CORPUSCULAR VOLUME 94.8 fL (81-99); MONOCYTES # (AUTO) 0.5 (0.2-0.8); MONOCYTES % 7.5 % (4.4-11.3); NEUTROPHILS # (AUTO) 4.5 (2.1-6.9); NEUTROPHILS % 68.1 % (38.7-80.0); PLATELET COUNT 133 x10e3/uL (140-360); RED BLOOD COUNT 2.52 x10e6/uL (4.3-5.7); RED CELL DISTRIBUTION WIDTH 12.6 % (11.7-14.4)
[2019-09-19 05:34] LABS: ANION GAP 12.9 mmol/L (8-16); CALCIUM 7.7 mg/dL (8.4-10.2); CREATININE, SERUM 2.13 mg/dL (0.72-1.25); POTASSIUM 4.9 mmol/L (3.5-5.1)
[2019-09-19] MEDS: INSULIN GLARGINE 100 UNITS/ML VIAL SQ SCH (05:36)
--- NOTE | 2019-09-19 07:05 | NUR ---
IM- progress note O/N no events ROS: unobtainable v/s revd PE tired appearing; bitemporal wasting left periorbital erythema ns1s2 mod bs soft nt nd no e/t skin dry flat affect confused [place] labs/meds revd A/P: 73yoM NSTEMI Uncontrolled DM/Hyperglycemia Syncope Acute Metabolic encephalopathy Elderly fall CKD3 due to DM2 Underweight Low BMI BMI 18.4 Normocytic anemia PLAN Start heparin gtt; check echo; cardio eval CHeck Osmoles; Did no have DKA, likely HHS; endocrinology eval cct>35mins 09/17 Hba1c/LDL 14.7/73 09/18 check H/H, Hb trending down; f/u cardio; 09/19 cont care. Rolf Carpenter MD, PhD.
[2019-09-19] MEDS: INSULIN REGULAR, HUMAN 100 UNIT/1 ML 3ML VIAL SQ SCH ×2 (07:56→11:37)
[2019-09-19] MEDS: ASPIRIN 81 MG ENTERIC COATED PO SCH (08:39)
[2019-09-19] MEDS: METOPROLOL TARTRATE 25 MG TAB PO SCH ×2 (08:39→17:01)
[2019-09-19] MEDS: MULTIVITAMINS/MINERALS TAB PO SCH (08:39)
[2019-09-19] MEDS: FAMOTIDINE 20 MG/2 ML VIAL IV SCH ×2 (08:39→17:01)
[2019-09-19] MEDS: HEPARIN 25,000 UNIT/D5W 250ML 250 ML IV SCH ×2 (11:38→12:46)
--- NOTE | 2019-09-19 12:08 | NUR ---
SPOKE WITH PT'S WHO STATES PT WAS UNSTEADY WITH AMBULATION PRIOR TO ADMIT REFUSING SNF AND OR HOME HEALTH CARE STATES SHE AND HER SON WILL BE AT HOME WITH PT PT'S ASKED IF CM COULD FILL OUT HER FMLA PAPERWORK AND I REFERRED HER TO HER PCP FOR THAT SERVICE
--- NOTE | 2019-09-19 14:48 | NUR ---
WOUND CARE CONSULT FOR SCREENING RELATED TO LOW JASPER SCORE OF 13 . 73 YO MALE, ON AN ALTERNATING PRESSURE MATTRESS. NURSING CONTINUES TO MAINTAIN PT ON A MODERATE PUP AND INTERVENTIONS. NURSING CONTINUES TO ASSIST PT OUT OF BED FOR MEALS OR MUCH TOLERATED. SKIN ASSESSMENT COMPLETE NO WOUNDS OR ADVERSE SKIN CONDITION NOTED. PT EDUCATED ON NECESSITY OF FREQUENT TURNING AND OFFLOADING. WOUND CARE TO BE RECONSULTED WITH ANY FUTURE SKIN OR WOUND RELATED ISSUES. Addendum: 09/19/19 at 1453 by Priscilla Prabhakar RN Amended: Links added.
[2019-09-19] MEDS: INSULIN LISPRO 100 UNIT/1 ML 3ML VIAL SQ SCH ×2 (16:37→21:30)
[2019-09-19] MEDS ORDERED: DEXTROSE 50% SYRINGE 50 ML IV PRN (16:45)
--- NOTE | 2019-09-19 19:53 | Progress Note ---
DATE: 09/19/2019 Cardiology Progress Note SUBJECTIVE: The patient denies chest pain or shortness of breath. OBJECTIVE: VITAL SIGNS: Temperature 98.2 degrees, pulse 72, respiratory rate 12, blood pressure 126/85, and oxygen saturation 99% on room air. GENERAL: Awake, alert, in no acute distress. LUNGS: Clear to auscultation bilaterally. No wheezes or crackles. CARDIOVASCULAR: Normal rate. Regular rhythm. No murmur. Normal S1, S2. ABDOMEN: Soft, nontender. EXTREMITIES: No edema. CARDIAC MEDICATIONS: Metoprolol tartrate 12.5 mg p.o. b.i.d., heparin drip, aspirin 81 mg p.o. daily, atorvastatin 10 mg p.o. at bedtime. LABORATORY DATA: WBC 6.56, hemoglobin 8.2, hematocrit 23.9 and platelets 133. Sodium 137, potassium 4.9, chloride 109, CO2 of 20, BUN 25, creatinine 2.13. Telemetry, normal sinus rhythm. ASSESSMENT: 1. Non-ST elevation myocardial infarction. 2. Acute systolic heart failure. 3. Hyperglycemia. 4. Diabetes mellitus. 5. Acute kidney injury on likely chronic kidney disease. 6. Syncope. 7. Altered mental status. PLAN: 1. Continue heparin drip for now. The patient will need cardiac catheterization to evaluate his coronary anatomy. It appears his current creatinine is around his baseline. Discussed with the patient risk of contrast-induced nephropathy. Appreciate Neurology assistance with recommendations. Continue medical therapy. Monitor on telemetry, n.p.o. after midnight for possible cardiac catheterization in a.m. Thank you for this consult. We will continue to follow. Ericka Zaldivar MD ABS/MODL /[id number]
[2019-09-19] MEDS: ATORVASTATIN 10 MG TAB PO SCH (21:29)
[2019-09-20] VITALS (30 sets, daily range): BP systolic 102–167; BP diastolic 51–113
--- NOTE | 2019-09-20 01:24 | NUR ---
Pulmonary Critical Care DATE 09/19/2019 SUBJECTIVE: eating well d5 1/2 NS IVF at 50/hr heparin IV espinosa still in REVIEW OF SYSTEMS: no emesis, no rash OBJECTIVE: VITAL SIGNS: vital signs noted, reviewed per the chart record. GENERAL: NAD, alert / calm HEENT: Normocephalic, atraumatic. NECK: Supple. Throat midline. LUNGS: Bilateral air entry, mostly clear. CARDIOVASCULAR: S1, S2. No murmurs, rubs, or gallops. ABDOMEN: Soft, nontender. EXTREMITIES: No clubbing, no cyanosis. no edema. INTEGUMENT: No rash or purpura. LABORATORY DATA: cr 2.13. co2 20. k 4.9 IMPRESSION AND PLAN: 1. nonketotic hyperosmolar hyperglycemic state, uncontrolled diabetes. 2. Treatment nonadherence, chronic 3. Chronic kidney disease. 4. History of hypertension. 5. Encephalopathy, toxic/metabolic. Improved. 6. Left periorbital contusion without fracture. 7. Anemia, moderate. 8. Thrombocytopenia, mild. 9. Lactic acidosis, not otherwise specified. 10. Acute myocardial infarction Insulin per endocrinology -SQ insulin heparin IV continue Cardiology to consider heart catheterization once stabilized further, to consider creatinine Give vitamins dc espinosa ok Thank you very much, Dr. Carpenter for allowing me a chance to participate in the care of Mr. Osei. Please call for questions.
[2019-09-20] MEDS: DEXTROSE 5%/0.45% SOD CHL 1,000 ML IV SCH ×2 (02:48→20:31)
[2019-09-20] MEDS: INSULIN GLARGINE 100 UNITS/ML VIAL SQ SCH (07:12)
[2019-09-20] MEDS: INSULIN LISPRO 100 UNIT/1 ML 3ML VIAL SQ SCH ×7 (07:30→20:32)
--- NOTE | 2019-09-20 07:38 | NUR ---
IM- progress note O/N no events ROS: unobtainable v/s revd PE tired appearing; bitemporal wasting left periorbital erythema ns1s2 mod bs soft nt nd no e/t skin dry flat affect confused [place] labs/meds revd A/P: 73yoM NSTEMI Uncontrolled DM/Hyperglycemia Syncope Acute Metabolic encephalopathy Elderly fall CKD3 due to DM2 Underweight Low BMI BMI 18.4 Normocytic anemia PLAN Start heparin gtt; check echo; cardio eval CHeck Osmoles; Did no have DKA, likely HHS; endocrinology eval cct>35mins 09/17 Hba1c/LDL 14.7/73 09/18 check H/H, Hb trending down; f/u cardio; 09/19 cont care. 09/20 pt does have MCI; as discussed with ; CT brain no acute findings; check MRI brain and U/S carotids; Rolf Carpenter MD, PhD.
[2019-09-20] MEDS: METOPROLOL TARTRATE 25 MG TAB PO SCH ×2 (09:00→18:14)
[2019-09-20] MEDS ORDERED: SODIUM CHLORIDE 0.9% 1000ML 1,000 ML ONE ×2 (09:30→12:04)
[2019-09-20 09:51] LABS: ANION GAP 12.8 mmol/L (8-16); CALCIUM 8.2 mg/dL (8.4-10.2); CREATININE, SERUM 2.06 mg/dL (0.72-1.25); POTASSIUM 4.8 mmol/L (3.5-5.1)
[2019-09-20] MEDS ORDERED: FENTANYL CITRATE/PF 100MCG/2 ML INJ ONE (12:01)
[2019-09-20] MEDS ORDERED: MIDAZOLAM HCL 2 MG/2 ML VIAL ONE (12:01)
[2019-09-20] MEDS ORDERED: VERAPAMIL HCL 2.5 MG/ML 2 ML VIAL ONE (12:01)
[2019-09-20] MEDS ORDERED: IOPAMIDOL 370 MG/ML 200 ML INFUS..BTL INJ ONE (12:02)
[2019-09-20] MEDS ORDERED: LIDOCAINE HCL 2% LOCAL 20 ML VIAL ONE (12:02)
[2019-09-20] MEDS ORDERED: HEPARIN SOD/SOD CHLORIDE 2,000 ML ONE (12:02)
[2019-09-20] MEDS ORDERED: HEPARIN SOD (PORCINE) 1000 UNIT/ML 30ML ONE (12:10)
--- NOTE | 2019-09-20 14:01 | Diagnostic Imaging Report ---
MRI BRAIN WO HISTORY: Altered mental status COMPARISON: Head CT 09/15/2019 TECHNIQUE: Sagittal T2, axial T2, multiplanar 3-D T1, axial T2/FLAIR, axial gradient echo (or susceptibility weighted), and axial diffusion weighted MR images of the brain were obtained without contrast. DISCUSSION: Scalp/bone marrow: Unremarkable. Brain sulci: Prominent. Ventricles: Compensatory dilatation. Extra-axial spaces: No masses or fluid collections. Parenchyma: Scattered T2/FLAIR hyperintense foci throughout the supratentorial white matter are likely chronic microvascular ischemic changes. Otherwise, no mass, hemorrhage, or acute vascular insults. Vessels: Normal flow voids in major arteries and veins. Sellar/Suprasellar region: No abnormalities. Craniocervical junction: No abnormalities. Incidental findings: Bilateral ocular lens replacement. IMPRESSION: 1. No acute intracranial abnormalities. 2. Mild supratentorial chronic microvascular ischemic change. 3. Mild generalized cerebral volume loss. Signed by: Dr. Jin Boyd M.D. on 09/20/2019 1:57 PM
[2019-09-20] MEDS: ASPIRIN 81 MG ENTERIC COATED PO SCH (14:21)
[2019-09-20] MEDS: FAMOTIDINE 20 MG/2 ML VIAL IV SCH ×2 (14:21→18:18)
[2019-09-20] MEDS: MULTIVITAMINS/MINERALS TAB PO SCH (14:21)
[2019-09-20] MEDS: ATORVASTATIN 10 MG TAB PO SCH (20:56)
[2019-09-21] VITALS (17 sets, daily range): BP systolic 106–151; BP diastolic 49–81
--- NOTE | 2019-09-21 03:07 | NUR ---
Pulmonary Critical Care DATE 09/20/2019 SUBJECTIVE: stable mentation, mild forgetfulness no bleeding REVIEW OF SYSTEMS: no emesis, no rash OBJECTIVE: VITAL SIGNS: vital signs noted, reviewed per the chart record. GENERAL: NAD, alert / calm HEENT: Normocephalic, atraumatic. NECK: Supple. Throat midline. LUNGS: Bilateral air entry, mostly clear. CARDIOVASCULAR: S1, S2. No murmurs, rubs, or gallops. ABDOMEN: Soft, nontender. EXTREMITIES: No clubbing, no cyanosis. no edema. INTEGUMENT: No rash or purpura. LABORATORY DATA: cr 2.06, wbc 6.6, hct 24 IMPRESSION AND PLAN: 1. nonketotic hyperosmolar hyperglycemic state, uncontrolled diabetes. 2. Treatment nonadherence, chronic 3. Chronic kidney disease. 4. History of hypertension. 5. Encephalopathy, toxic/metabolic. Improved. 6. Left periorbital contusion without fracture. 7. Anemia, moderate. 8. Thrombocytopenia, mild. 9. Lactic acidosis, not otherwise specified. 10. Acute myocardial infarction Insulin per endocrinology -SQ insulin Cardiology for heart catheterization Give vitamins Thank you very much, Dr. Carpenter for allowing me a chance to participate in the care of Mr. Osei. Please call for questions.
--- NOTE | 2019-09-21 06:28 | NUR ---
IM- progress note O/N no events ROS: unobtainable v/s revd PE tired appearing; bitemporal wasting left periorbital erythema ns1s2 mod bs soft nt nd no e/t skin dry flat affect confused [place] labs/meds revd A/P: 73yoM NSTEMI Uncontrolled DM/Hyperglycemia Syncope Acute Metabolic encephalopathy Elderly fall CKD3 due to DM2 Underweight Low BMI BMI 18.4 Normocytic anemia PLAN Start heparin gtt; check echo; cardio eval CHeck Osmoles; Did no have DKA, likely HHS; endocrinology eval cct>35mins 09/17 Hba1c/LDL 14.7/73 09/18 check H/H, Hb trending down; f/u cardio; 09/19 cont care. 09/20 pt does have MCI; as discussed with ; CT brain no acute findings; check MRI brain and U/S carotids; 09/21 severe CAD; will need CAB; at this pt continue medical regimen; f/u cardio recs. Rolf Carpenter MD, PhD.
[2019-09-21] MEDS: INSULIN GLARGINE 100 UNITS/ML VIAL SQ SCH (06:56)
[2019-09-21] MEDS: INSULIN LISPRO 100 UNIT/1 ML 3ML VIAL SQ SCH ×7 (07:47→21:05)
[2019-09-21] MEDS: ASPIRIN 81 MG ENTERIC COATED PO SCH (08:19)
[2019-09-21] MEDS: METOPROLOL TARTRATE 25 MG TAB PO SCH (08:20)
[2019-09-21] MEDS: MULTIVITAMINS/MINERALS TAB PO SCH (08:20)
[2019-09-21] MEDS: FAMOTIDINE 20 MG TAB PO SCH ×2 (08:21→16:50)
--- NOTE | 2019-09-21 09:34 | NUR ---
PATIENT ASSISTED PUT OF BED TO CHAIR. MINIMAL ASSISTANCE REQUIRED. ALL LINEN CHANGED. Addendum: 09/21/19 at 0935 by Iman Rivera RN Amended: Links added.
--- NOTE | 2019-09-21 09:48 | NUR ---
PATIENT AMBULATED TO TOILET FOR 1 ST VOID Addendum: 09/21/19 at 0949 by Iman Rivera RN Amended: Links added.
--- NOTE | 2019-09-21 10:29 | NUR ---
PATIENT AMBULATED IN HALLWAY WITH PHYSICAL THERAPIST
[2019-09-21 11:39] LABS: ANION GAP 12.7 mmol/L (8-16); CREATININE, SERUM 2.29 mg/dL (0.72-1.25); POTASSIUM 4.7 mmol/L (3.5-5.1)
--- NOTE | 2019-09-21 13:15 | Progress Note ---
DATE: 09/21/2019 Cardiology Progress Note SUBJECTIVE: The patient denies chest pain or shortness of breath. Cardiac catheterization was performed yesterday, which revealed multi-vessel coronary artery disease. OBJECTIVE: VITAL SIGNS: Temperature 98.2 degrees, pulse 56, respiratory rate 18, blood pressure 111/55, oxygen saturation 100% on room air. GENERAL: Awake, alert, in no acute distress. Ambulating in reilly with physical therapy. LUNGS: Clear to auscultation bilaterally. No wheezes or crackles. CARDIOVASCULAR: Normal rate, regular rhythm. No murmur. Normal S1, S2. ABDOMEN: Soft, nontender. EXTREMITIES: No edema. CARDIAC MEDICATIONS: Metoprolol tartrate 12.5 mg p.o. b.i.d., aspirin 81 mg p.o. daily, atorvastatin 10 mg p.o. at bedtime. LABORATORY DATA: None today. TELEMETRY: Normal sinus rhythm. IMPRESSION: 1. Dgg-RM-[id number] myocardial infarction. 2. Multivessel coronary artery disease. 3. Acute systolic heart failure. 4. Diabetes mellitus. 5. Acute kidney injury on chronic kidney disease likely now back at baseline. 6. Syncope. 7. Altered mental status. RECOMMENDATIONS: Continue current cardiac medications metoprolol will need to be changed to metoprolol succinate. Add ELENO inhibitor if agreeable with Nephrology and renal function is stable after cardiac catheterization. Given patient's diabetes mellitus and multivessel coronary artery disease, recommend CV Surgery evaluation. This can be done as an outpatient once he has recovered from his current illness. Monitor patient closely on telemetry. Thank you for this consult. We will continue to follow. Ericka Zaldivar MD ABS/MODL /[id number]
--- NOTE | 2019-09-21 14:14 | NUR ---
RECEIVED PATIENT FROM ICU ROOM 191 TO [place] [id number] ROOM 290 AT 1341- PATIENT IS ALERT, AWAKE AND IN STABLE CONDITION WITH NO S/S OF RESPIRATORY DISTRESS.NO PAIN VOICED. DRESSING TO RIGHT GROIN IS DRY AND INTACT. TELE APPLIED- SB@56. AND SON PRESENT IN ROOM. IV FLUIDS INFUSING. CALL LIGHT IS WITHIN REACH OF PATIENT- PATIENT INSTRUCTED TO CALL FOR ASSISTANCE NEEDED.
[2019-09-21] MEDS: DEXTROSE 5%/0.45% SOD CHL 1,000 ML IV SCH (16:33)
--- NOTE | 2019-09-21 16:58 | NUR ---
CALL PLACED OUT TO DR. VEGA REGARDING METOPROLOL DOSE AND PARAMETERS. PATIENT'S CURRENT HR IS 59- AWAITING CALLBACK
[2019-09-21] MEDS: METOPROLOL SUCCINATE 25 MG TAB XL PO SCH (18:20)
--- NOTE | 2019-09-21 18:58 | NUR ---
PATIENT IS IN STABLE CONDITION WITH NO S/S OF RESPIRATORY DISTRESS. NO PAIN VOICED. IV FLUIDS INFUSING. TELEMETRY APPLIED. BED ALARM APPLIED. FAMILY PRESENT IN ROOM. CALL LIGHT IS WITHIN REACH OF PATIENT, PATIENT INSTRUCTED TO CALL FOR ASSISTANCE NEEDED. REPORT GIVEN TO ONCOMING NURSE.
--- NOTE | 2019-09-21 20:10 | NUR ---
Assessment done.no resp.distress.no pain voiced.ambulates with walker.voided.family member at bed side.dressing to right groin is dry.bed locked and in lowest position.phone and call light within reach.instructed to call for assistance as needed.
[2019-09-21] MEDS: ATORVASTATIN 10 MG TAB PO SCH (21:05)
--- NOTE | 2019-09-21 21:32 | NUR ---
Pulmonary Critical Care DATE 09/21/2019 SUBJECTIVE: 100% sat RA fio2 ivf d5w ongiong [facility] result, 3 vessel disease noted walked with minimal assist REVIEW OF SYSTEMS: no emesis, no rash OBJECTIVE: VITAL SIGNS: vital signs noted, reviewed per the chart record. GENERAL: NAD, alert / calm HEENT: Normocephalic, atraumatic. NECK: Supple. Throat midline. LUNGS: Bilateral air entry, mostly clear. CARDIOVASCULAR: S1, S2. No murmurs, rubs, or gallops. ABDOMEN: Soft, nontender. EXTREMITIES: No clubbing, no cyanosis. no edema. INTEGUMENT: No rash or purpura. LABORATORY DATA: cr 2.2 IMPRESSION AND PLAN: 1. nonketotic hyperosmolar hyperglycemic state, uncontrolled diabetes. 2. Treatment nonadherence, chronic 3. Chronic kidney disease. 4. History of hypertension. 5. Encephalopathy, toxic/metabolic. Improved. 6. Left periorbital contusion without fracture. 7. Anemia, moderate. 8. Thrombocytopenia, mild. 9. Lactic acidosis, not otherwise specified. 10. Acute myocardial infarction SQ Insulin per endocrinology Cardiology to consider CABG referral for 3 vessel disease Give vitamins repeat AM bmp, r/o NAVJOT Can leave the ICU Thank you very much, Dr. Carpenter for allowing me a chance to participate in the care of Mr. Osei. Please call for questions.
[2019-09-22] VITALS (8 sets, daily range): BP systolic 120–147; BP diastolic 59–68
[2019-09-22] MEDS: INSULIN GLARGINE 100 UNITS/ML VIAL SQ SCH (06:00)
[2019-09-22 06:33] LABS: ANION GAP 11.9 mmol/L (8-16); CALCIUM 7.9 mg/dL (8.4-10.2); CREATININE, SERUM 2.4 mg/dL (0.72-1.25); POTASSIUM 4.9 mmol/L (3.5-5.1)
--- NOTE | 2019-09-22 06:55 | NUR ---
Bed side shift report given to the on coming Rn.stable condition.
[2019-09-22] MEDS: INSULIN LISPRO 100 UNIT/1 ML 3ML VIAL SQ SCH ×7 (07:30→20:23)
[2019-09-22] MEDS: FAMOTIDINE 20 MG TAB PO SCH ×2 (07:58→16:58)
[2019-09-22] MEDS: ASPIRIN 81 MG ENTERIC COATED PO SCH (07:58)
[2019-09-22] MEDS: MULTIVITAMINS/MINERALS TAB PO SCH (07:58)
[2019-09-22] MEDS: METOPROLOL SUCCINATE 25 MG TAB XL PO SCH ×2 (07:59→17:01)
[2019-09-22] MEDS: DEXTROSE 5%/0.45% SOD CHL 1,000 ML IV SCH (11:22)
--- NOTE | 2019-09-22 12:40 | NUR ---
Pulmonary Critical Care DATE 09/22/2019 SUBJECTIVE: RA fio2 walked ivf 40/hr eating well REVIEW OF SYSTEMS: no emesis, no rash OBJECTIVE: VITAL SIGNS: vital signs noted, reviewed per the chart record. GENERAL: NAD, alert / calm HEENT: Normocephalic, atraumatic. NECK: Supple. Throat midline. LUNGS: Bilateral air entry, mostly clear. CARDIOVASCULAR: S1, S2. No murmurs, rubs, or gallops. ABDOMEN: Soft, nontender. EXTREMITIES: No clubbing, no cyanosis. no edema. INTEGUMENT: No rash or purpura. LABORATORY DATA: cr 2.4 IMPRESSION AND PLAN: 1. nonketotic hyperosmolar hyperglycemic state, uncontrolled diabetes. 2. Treatment nonadherence, chronic 3. Chronic kidney disease. 4. History of hypertension. 5. Encephalopathy, toxic/metabolic. Improved. 6. Left periorbital contusion without fracture. 7. Anemia, moderate. 8. Thrombocytopenia, mild. 9. Lactic acidosis, not otherwise specified. 10. Acute myocardial infarction SQ Insulin per endocrinology Cardiology to consider CABG referral for 3 vessel disease Give vitamins mobilize, ambulate Thank you very much, Dr. Carpenter for allowing me a chance to participate in the care of Mr. Osei. Please call for questions.
--- NOTE | 2019-09-22 18:45 | Progress Note ---
DATE: 09/22/2019 Renal Progress Note SUBJECTIVE: Followed for acute kidney injury on chronic kidney disease, stage 4. Creatinine is 2.4 today. Yesterday's creatinine was at 2.3. The patient's sodium is dropping. The patient is on half-normal saline, which is hypotonic fluid. No nausea. No vomiting. No shortness breath. OBJECTIVE: VITAL SIGNS: Have been noted and are stable. LUNGS: Clear to auscultation bilaterally. CARDIOVASCULAR: S1 and S2. No rub. ABDOMEN: Soft and nontender. EXTREMITIES: No edema. LABORATORY DATA: Labs have been reviewed. Sodium 134, potassium 4.9, chloride 105, bicarb 22, BUN 39, and creatinine is 2.4. IMPRESSION AND PLAN: 1. Acute kidney injury on chronic kidney disease, stage 4. Suspect there is a component of hypotonic IV fluid leading to the hyponatremia. There may be a component of slight volume overload as well. I will discontinue the IV fluids and monitor kidney function off fluids for now. At baseline, the patient has typically creatinine around 2 to 2.1 mg/dL. 2. Hypertension. Blood pressure stable. Continue to monitor closely. 3. Anemia of chronic disease. H and H are stable currently. At present time, we will continue to monitor closely. Thank you once again. Luke Dubon MD /MODL /[id number]
--- NOTE | 2019-09-22 19:15 | NUR ---
patient received awake, alert, lying quietly in bed. no c/o pain noted. pm assessment complete. noted at the bedside. patient/ instructed to call for assistance when needed.
[2019-09-22] MEDS: ATORVASTATIN 10 MG TAB PO SCH (20:34)
[2019-09-23 05:46] VITALS: BP 152/67
[2019-09-23] MEDS: INSULIN GLARGINE 100 UNITS/ML VIAL SQ SCH (06:00)
[2019-09-23] MEDS: INSULIN LISPRO 100 UNIT/1 ML 3ML VIAL SQ SCH ×7 (07:30→20:28)
[2019-09-23] MEDS: ASPIRIN 81 MG ENTERIC COATED PO SCH (08:14)
[2019-09-23] MEDS: MULTIVITAMINS/MINERALS TAB PO SCH (08:14)
[2019-09-23] MEDS: FAMOTIDINE 20 MG TAB PO SCH ×2 (08:14→17:18)
[2019-09-23] MEDS: METOPROLOL SUCCINATE 25 MG TAB XL PO SCH ×2 (08:14→17:00)
[2019-09-23 08:17] VITALS: BP 160/66
[2019-09-23 08:22] VITALS: BP 160/66
--- NOTE | 2019-09-23 10:12 | NUR ---
IM- progress note O/N no events ROS: unobtainable v/s revd PE tired appearing; bitemporal wasting left periorbital erythema ns1s2 mod bs soft nt nd no e/t skin dry flat affect confused [place] labs/meds revd A/P: 73yoM NSTEMI Uncontrolled DM/Hyperglycemia Syncope Acute Metabolic encephalopathy Elderly fall CKD3 due to DM2 Underweight Low BMI BMI 18.4 Normocytic anemia PLAN Start heparin gtt; check echo; cardio eval CHeck Osmoles; Did no have DKA, likely HHS; endocrinology eval cct>35mins 09/17 Hba1c/LDL 14.7/73 09/18 check H/H, Hb trending down; f/u cardio; 09/19 cont care. 09/20 pt does have MCI; as discussed with ; CT brain no acute findings; check MRI brain and U/S carotids; 09/21 severe CAD; will need CAB; at this pt continue medical regimen; f/u cardio recs. 09/22 f/u carotid doppler; renal fn same; MRI brain negative; plan for consultation with [facility] outpt. 09/23 d/c planning; Rolf Carpenter MD, PhD.
[2019-09-23 12:06] VITALS: BP 122/61
--- NOTE | 2019-09-23 14:20 | NUR ---
Pulmonary Critical Care DATE 09/23/2019 SUBJECTIVE: right phlebitis noted off IVF walked independently per REVIEW OF SYSTEMS: no emesis, no rash OBJECTIVE: VITAL SIGNS: vital signs noted, reviewed per the chart record. GENERAL: NAD, alert / calm HEENT: Normocephalic, atraumatic. NECK: Supple. Throat midline. LUNGS: Bilateral air entry, mostly clear. CARDIOVASCULAR: S1, S2. No murmurs, rubs, or gallops. ABDOMEN: Soft, nontender. EXTREMITIES: No clubbing, no cyanosis. no edema. INTEGUMENT: No rash or purpura. LABORATORY DATA: no new updates IMPRESSION AND PLAN: 1. nonketotic hyperosmolar hyperglycemic state, uncontrolled diabetes. 2. Treatment nonadherence, chronic 3. Chronic kidney disease. 4. History of hypertension. 5. Encephalopathy, toxic/metabolic. Improved. 6. Left periorbital contusion without fracture. 7. Anemia, moderate. 8. Thrombocytopenia, mild. 9. Lactic acidosis, not otherwise specified. 10. Acute myocardial infarction, multivessel CAD SQ Insulin per endocrinology Cardiology to consider CABG referral for 3 vessel disease Give vitamins mobilize, ambulate warm packs to phlebitis Thank you very much, Dr. Carpenter for allowing me a chance to participate in the care of Mr. Osei. Please call for questions.
[2019-09-23 17:24] VITALS: BP 149/72
[2019-09-23 20:00] VITALS: BP 137/63
--- NOTE | 2019-09-23 20:00 | NUR ---
INITIAL ASSESSMENT COMPLETE, TELE ON PT, RUNNING SR, BM TODAY, NO DISTRESS NOTED, VS STABLE, CALL LIGHT IN REACH, TOLD TO CALL FOR NEEDS, SMALL SKIN TEAR TO LEFT ARM COVERED WITH TEGADERM
[2019-09-23] MEDS: ATORVASTATIN 10 MG TAB PO SCH (20:35)
[2019-09-24] VITALS: BP 166/79
[2019-09-24 04:00] VITALS: BP 163/78
[2019-09-24] MEDS: INSULIN GLARGINE 100 UNITS/ML VIAL SQ SCH (06:00)
--- NOTE | 2019-09-24 06:13 | NUR ---
patient awake and alert, drinking coffee, lantus given, bg 144 this am, no distress noted, vs stable, call light in reach
[2019-09-24 06:39] LABS: ANION GAP 13.7 mmol/L (8-16); CALCIUM 8.2 mg/dL (8.4-10.2); CREATININE, SERUM 2.25 mg/dL (0.72-1.25); MAGNESIUM 2.2 MG/DL (1.3-2.1); POTASSIUM 4.7 mmol/L (3.5-5.1)
--- NOTE | 2019-09-24 07:15 | NUR ---
PT UP IN BED DENIES PAIN ,NO DISTRESS NTOED,
[2019-09-24] MEDS: INSULIN LISPRO 100 UNIT/1 ML 3ML VIAL SQ SCH ×6 (07:30→16:30)
--- NOTE | 2019-09-24 07:36 | NUR ---
D/C summary Principal Dx: NSTEMI Uncontrolled DM/Hyperglycemia Syncope Acute Metabolic encephalopathy Elderly fall CKD3 due to DM2 Underweight Low BMI SEcondary Dx BMI 18.4 Normocytic anemia PLAN Start heparin gtt; check echo; cardio eval CHeck Osmoles; Did no have DKA, likely HHS; endocrinology eval cct>35mins 09/17 Hba1c/LDL 14.7/73 09/18 check H/H, Hb trending down; f/u cardio; 09/19 cont care. 09/20 pt does have MCI; as discussed with ; CT brain no acute findings; check MRI brain and U/S carotids; 09/21 severe CAD; will need CAB; at this pt continue medical regimen; f/u cardio recs. 09/22 f/u carotid doppler; renal fn same; MRI brain negative; plan for consultation with [facility] outpt. 09/23 d/c planning; 09/24 d/c home; d/c home f/u pcp 1 week and or CV surgery in few days; cardiology 1 week stable d/c>35mins Rolf Carpenter MD, PhD.
[2019-09-24 07:40] LABS: HEMATOCRIT 25.1 % (38.2-49.6); HEMOGLOBIN 8.3 g/dL (14.0-18.0)
[2019-09-24 08:02] VITALS: BP 172/75
[2019-09-24] MEDS: MULTIVITAMINS/MINERALS TAB PO SCH (08:24)
[2019-09-24] MEDS: FAMOTIDINE 20 MG TAB PO SCH ×2 (08:24→17:03)
[2019-09-24] MEDS: ASPIRIN 81 MG ENTERIC COATED PO SCH (08:24)
[2019-09-24] MEDS: METOPROLOL SUCCINATE 25 MG TAB XL PO SCH ×2 (08:25→17:04)
[2019-09-24 09:41] LABS: PHOSPHORUS 4.2 MG/DL (2.3-4.7)
[2019-09-24 09:45] VITALS: BP 172/75
--- NOTE | 2019-09-24 11:30 | NUR ---
paged dr armas re;discharge
[2019-09-24 12:00] VITALS: BP 173/79
--- NOTE | 2019-09-24 12:45 | NUR ---
REPAGED DR HAYES
--- NOTE | 2019-09-24 13:00 | NUR ---
REPAGED DR HAYES.
--- NOTE | 2019-09-24 13:46 | NUR ---
Discontinuing skilled physical therapy services since patient is Mod I/Independent in functional mobility. Thank you. Addendum: 09/24/19 at 1348 by Tobi rose PT Amended: Links added.
[2019-09-24] MEDS ORDERED: LIPITOR10 MG PO (14:09)
[2019-09-24] MEDS ORDERED: Multivitamins/Minerals PO (14:09)
[2019-09-24] MEDS ORDERED: ASPIRIN EC81 MG PO (14:09)
[2019-09-24] MEDS ORDERED: Insulin Glargine SQ (14:09)
[2019-09-24] MEDS ORDERED: FAMOTIDINE20 MG PO (14:09)
[2019-09-24] MEDS ORDERED: TOPROL XL25 MG PO (14:09)
[2019-09-24 16:24] VITALS: BP 169/75
--- NOTE | 2019-09-24 17:45 | NUR ---
DR HENDERSON HERE COVERING FOR DR HAYES.OK FOR PT TO BED DISCHARGED.
--- NOTE | 2019-09-24 22:04 | NUR ---
Pulmonary Critical Care DATE 09/24/2019 SUBJECTIVE: eating well BM good RA FiO2 REVIEW OF SYSTEMS: no emesis, no rash OBJECTIVE: VITAL SIGNS: vital signs noted, reviewed per the chart record. GENERAL: NAD, alert / calm HEENT: Normocephalic, atraumatic. NECK: Supple. Throat midline. LUNGS: Bilateral air entry, mostly clear. CARDIOVASCULAR: S1, S2. No murmurs, rubs, or gallops. ABDOMEN: Soft, nontender. EXTREMITIES: No clubbing, no cyanosis. no edema. INTEGUMENT: No rash or purpura. LABORATORY DATA: no new updates IMPRESSION AND PLAN: 1. nonketotic hyperosmolar hyperglycemic state, uncontrolled diabetes. 2. Treatment nonadherence, chronic 3. Chronic kidney disease. 4. History of hypertension. 5. Encephalopathy, toxic/metabolic. Improved. 6. Left periorbital contusion without fracture. 7. Anemia, moderate. 8. Thrombocytopenia, mild. 9. Lactic acidosis, not otherwise specified. 10. Acute myocardial infarction, multivessel CAD SQ Insulin per endocrinology Cardiology to consider CABG referral for 3 vessel disease Give vitamins mobilize, ambulate warm packs to phlebitis possible home today Thank you very much, Dr. Carpenter for allowing me a chance to participate in the care of Mr. Osei. Please call for questions.
[2019-10-21] MEDS ORDERED: METOPROLOL SUCC25 MG PO (00:03)
--- NOTE | 2019-11-14 12:18 | Operative Report ---
DATE OF PROCEDURE: 09/20/2019 SURGEON: Brock Barcenas DO PROCEDURES PERFORMED: 1. Conscious sedation, 26 minutes. 2. Selective coronary angiography x2. PREPROCEDURE DIAGNOSIS: [id number] myocardial infarction. POSTPROCEDURE DIAGNOSIS: Kev-ED-[id number] myocardial infarction. ESTIMATED BLOOD LOSS: Less than 30 mL. SPECIMENS REMOVED: None. PROCEDURE IN DETAIL: After informed consent was obtained, the patient was brought to the cardiac catheterization laboratory in a fasting and nonsedated state. Bilateral groins were prepped and draped in usual sterile fashion. A 2% lidocaine was infiltrated over the right anterior groin for local anesthesia. Using micropuncture needle, the right common femoral artery was accessed via modified Seldinger technique and a 5-Georgian sheath was placed. Next, diagnostic coronary angiography was performed x2. The patient tolerated the procedure well with no immediate complications and was transferred to room in stable condition. PROCEDURAL FINDINGS: 1. Left main coronary artery is patent. 2. Left anterior descending coronary artery is heavily calcified throughout its course. There is a mid severe 80% stenosis. There is a distal 70% stenosis. The first diagonal branch has a mid 70% stenosis. 3. Left circumflex coronary artery provides two obtuse marginal vessels. The ostium of the left circumflex has a 60% stenosis. The first OM is 100% occluded. The distal OM is patent. 4. Right coronary artery is a dominant vessel. The proximal RCA is patent. The midportion has a 50% stenosis. The large posterior lateral branch is 100% occluded. The PDA itself has an 80% stenosis. IMPRESSION: Multivessel coronary artery disease. RECOMMENDATIONS: Bypass surgery. Brock Barcenas DO BM/MODL /[id number]
== END 2019-09-24 18:10 | disposition home or self-care (01) | DRG 280 ==
LOC: ER 22:18 → ERHOLD 23:57 → ICU 09-16 03:00 → MED/SURG3 09-21 13:41
PROVIDERS: ADMIT Internal Medicine; ATTEND Internal Medicine
PROC: 4A023N7 Measurement of Cardiac Sampling and Pressure, Left Heart, Percutaneous Approach (ICD-10-PCS; principal; 2019-09-15)
PROC: B2111ZZ Fluoroscopy of Multiple Coronary Arteries using Low Osmolar Contrast (ICD-10-PCS; 2019-09-15)
PROC: B2151ZZ Fluoroscopy of Left Heart using Low Osmolar Contrast (ICD-10-PCS; 2019-09-15)
DX: I21.4 Non-ST elevation (NSTEMI) myocardial infarction (principal); G93.41 Metabolic encephalopathy; E11.10 Type 2 diabetes mellitus with ketoacidosis without coma; Z68.1 Body mass index [BMI] 19.9 or less, adult; E87.2 Acidosis; N17.9 Acute kidney failure, unspecified; N18.3 Chronic kidney disease, stage 3 (moderate); E86.0 Dehydration; Z91.19 Patient's noncompliance with other medical treatment and regimen; W19.XXXA Unspecified fall, initial encounter; R63.6 Underweight; E11.22 Type 2 diabetes mellitus with diabetic chronic kidney disease; I12.9 Hypertensive chronic kidney disease with stage 1 through stage 4 chronic kidney disease, or unspecified chronic kidney disease; Z79.4 Long term (current) use of insulin; D64.9 Anemia, unspecified; S09.90XA Unspecified injury of head, initial encounter; D69.6 Thrombocytopenia, unspecified; S00.12XA Contusion of left eyelid and periocular area, initial encounter; Z91.14 Patient's other noncompliance with medication regimen
CPT/HCPCS: 36415; 51701; 70450; 70551; 71045; 72125; 76770; 80048; 80053; 80061; 80307; 81001; 82550; 82553; 82805; 82947; 82948; 83036; 83605; 83690; 83735; 83935; 84100; 84295; 84439; 84443; 84484; 84520; 85007; 85014; 85018; 85025; 85027; 85610; 85730; 87040; 87086; 93005; 93041; 93306; 93458; 93880; 96372; 97139; 99152; 99284; C1760; J1644; J1815; J1817; J2001; J2060; J2250; J3010; J3411; J3480; J7030; J7050; Q9967

== ENCOUNTER → 2023-03-14 | Outpatient (CLI) | payer MEDICARE ==
[~2023-03-14] MED LIST changes: +ASPIRIN EC81 MG PO; +FAMOTIDINE20 MG PO; +Insulin Glargine SQ; +LIPITOR10 MG PO; +METOPROLOL SUCC25 MG PO; +Multivitamins/Minerals PO; +TOPROL XL25 MG PO
== END ==
LOC: MRI 12:47
PROVIDERS: ATTEND Psychiatry & Neurology Neurology
DX: R41.3 Other amnesia (principal); G93.1 Anoxic brain damage, not elsewhere classified
CPT/HCPCS: 70551